=== PATIENT | female | born 1980 | race Caucasian/White ===

== ENCOUNTER 2019-02-07 10:46 | Emergency (ER) | payer OTHER ==
[~2019-02-07] VITALS: Ht 157.5 cm; Wt 102.1 kg
--- OUTSIDE RECORDS SUMMARY | 2019-02-07 10:48 | XMS REPORT ---
Author Author [facility] Address Unknown Phone Unavailable Care Team Providers Care Framing Carpenter Name Role Phone Unavailable Unavailable Payers Payer Name Policy Type Policy Number Effective Date Expiration Date Problems This patient has no known problems. Allergies, Adverse Reactions, Alerts Allergy Name Allergy Type Status Severity Reaction(s) Onset Date Inactive Date Treating Clinician Comments tramadol HCl DA Active 2019-01-08 00:00:00 Penicillins DA Active ID 2019-01-08 00:00:00 Sulfa (Sulfonamide Antibiotics) DA Active ID 2019-01-08 00:00:00 doxycycline DA Active ID 2019-01-08 00:00:00 ketorolac DA Active ID 2019-01-08 00:00:00 tramadol HCl DA Active U 2012-12-26 00:00:00 Penicillins DA Active ID 2012-12-26 00:00:00 Sulfa (Sulfonamide Antibiotics) DA Active ID 2012-12-26 00:00:00 doxycycline DA Active ID 2012-12-26 00:00:00 ketorolac DA Active ID 2012-12-26 00:00:00 Medications This patient has no known medications. Results Test Description Test Time Test Comments Text Results Atomic Results Result Comments - XR RIBS UNI W/CXR 3+V LT 2019-01-08 10:56:00 FAX: Viridiana Cuevas DO [place]: [address] St: REG Name: DAMEON CROFT [facility] : 1980 Age/S: 38/F [address] [facility] Unit #: [id number] Loc: [place] [address] Phys: Viridiana Cuevas DO Acct: [id number] Dis Date: Status: REG ER PHONE #: [phone] Exam Date: 01/08/2019 1030 FAX #: [phone] Reason: CHEST PAIN, FALL EXAMS: CPT CODE: [id number] XR RIBS UNI W/CXR 3+[place] [address] HISTORY: Chest wall pain. COMPARISON: Chest x-ray from February 17, 2014. Chest x-ray and left rib series: The lungs are clear of infiltrates, effusion or congestion. Cardiac and the mediastinal silhouette are normal. No pneumothorax. No left rib fracture. IMPRESSION: No left rib fracture or pneumothorax. The lungs are clear. at 1058 Reported and signed by: Elmo Triana M.D. CC: Viridiana Cuevas DO Technologist: RT GLORIA(Cesar) Trnscrd Date/Time/By: 01/08/2019 (1056) : By: [email or web address] Orig Print D/T: S: 01/08/2019 (6498) PAGE 1 Signed Report CBC 2018-07-03 15:20:00 WBC (test code=WBC) 7.1 K/UL 3.5-10.9 RBC (test code=RBC) 4.75 M/UL 4.0-5.0 HGB (test code=HGB) 13.4 G/DL 11.5-15.5 HCT (test code=HCT) 42.0 % 34-46 MCV (test code=MCV) 88.4 FL 80-98 MCH (test code=MCH) 28.2 PG 28-32 MCHC (test code=MCHC) 31.9 G/DL 32.5-36.5 RDW (test code=RDW) 13.2 % 11.5-14.5 PLT (test code=PLT) 252 K/UL 150-450 MPV (test code=MPV) 10.6 FL 7.4-10.4 MANDIFF (test code=MANDIFF) NO SCAN (test code=SCAN) NO NEUT% (test code=NEUT%) 34.2 % 40-75 LYMPH% (test code=LYMPH%) 58.0 % 24-44 MONO% (test code=MONO%) 7.0 % 0-13 EOS% (test code=EOS%) 0.4 % 0-4 BASO % (test code=BASO%) 0.3 % 0-2 IG (test code=IG) 0 % 0-1 IG% (test code=IG%) 0.1 % 0-1 IG%=Metamyelocytes, Myelocytes, and Promyelocytes. (Immature neutrophils not including "bands".) > 3% IG indicates risk of sepsis NRBC% (test code=NRBC%) 0 /100 WBC ABS NEUT (test code=NEUT) 2.4 K/UL 1.2-7.2 [id number] 15:06:00* Test Item Value Reference Range Comments SODIUM (test code=NA) 138 MMOL/L 137-145 K+ (test code=KSERUM) 3.9 MMOL/L 3.5-5.1 PLEASE NOTE NEW REFERENCE RANGE(S) IN EFFECT EFFECTIVE 11/02/2009 - NEW ANALYZER (TargetX 5600) CHLORIDE (test code=CL) 104 MMOL/L 98-107 CO2 (test code=CO2) 27 MMOL/L 22-30 BUN (test code=BUN) 5 MG/DL 7-17 CREA (test code=CREA) 0.5 MG/DL 0.7-1.2 GLUCOSE (test code=GLUCOSE) 87 MG/DL 70-99 Fasting glucose normal <100 MG/DL- [place] recommendation CALCIUM (test code=CABLOOD) 9.8 MG/DL 8.4-10.2 TOTPROT (test code=TOTPROT) 6.7 G/DL 6.3-8.2 ALBUMIN (test code=ALBSERUM) 4.3 G/DL 3.5-5.0 BILITOT (test code=BILITOT) 0.5 MG/DL 0.2-1.3 AST (test code=AST) 10 U/L 15-46 PHOSALK (test code=PHOSALK) 121 U/L 38-126 ALT (test code=ALT) 19 U/L 13-69 GFR (test code=GFR) 145 mL/min/1.73m2 A GFR of >90 mL/min/1.73m2 is considered normal. LIPID [id number] 15:06:00* Test Item Value Reference Range Comments CHOLEST (test code=CHOLEST) 282 MG/DL 0-200 TRIGLYCE (test code=TRIGLYCE) 95 MG/DL 0-150 HDL (test code=HDL) 76 MG/DL 35-90 NEGATIVE RISK FACTOR FOR HEART DISEASE IF HDL >/=60 mg/dl MAJOR RISK FACTOR FOR HEART DISEASE IF HDL <40 mg/dL CALC LDL (test code=CALC LDL) 187 MG/DL <100 [id number] 18:29:[address] [id number] IMAGING REPORTPatient Name: DAMEON CROFT HDate of Service: [id number]: 37 Sex: F Order #: [id number] Room: [facility]: 1980 X-Ray Number: [id number] Record Number: [id number] Hospital Number: [id number] Physician: Nazanin BANSALing Physician: Rigo HILARIO RIBS 3 views 09/21/2017 5:18 PMHistory: Chest Pain with Trauma/Injury, fell with left-sided rib pain anddyspnea.Comparisons: None availableFindings:There is no rib fracture or destruction.There is no lytic or blastic bone lesion.Impression:Unremarkable rib series.Electronically Signed By: Joseph Thomson M.D., 09/21/2017 6:26 PMLegally authenticated by LEIGH [employer]AMPO 2017-09-21 18:26:40
--- OUTSIDE RECORDS SUMMARY | 2019-02-07 10:49 | XMS REPORT | Summary of Care ---
Author Author [facility] - Health Organization [facility] - Health Address Unknown Phone Unavailable Care Team Providers Care Lamp Shades Supervisor Name Role Phone Terrance Ward Unavailable Nalini Brady SINGLE POINTED OPERATOR Unavailable Unavailable Lamonte Carmona [address] Blake Barajas MD PCP Encounter Details Care Team Description Date Type Department Doctor Unassigned, [place] [address] [place] [address] 12/15/2018 Orders Only [facility] [address] [place] [address] Allergies Comments Active Allergy Reactions Severity Noted Date Doxycycline Nausea and/or High 05/27/2012 Vomiting Ketorolac Hives High 11/26/2017 Penicillins Hives High 05/27/2012 Sulfa (Sulfonamide Hives High 05/27/2012 Antibiotics) Ketorolac Tromethamine Hives High 05/27/2012 Tramadol Hives 05/01/2017 documented as of this encounter (statuses as of 12/16/2018) Medications End Date Status Medication Sig Dispensed Refills Start Date Active ALPRAZolam (XANAX XR) 1 1 mg at 0 07/25/201 mg 24 hr tablet bedtime. 6 Active QUEtiapine (SEROQUEL) 300 600 mg at 0 07/02/201 mg tablet bedtime. 6 Active hydrOXYzine (VISTARIL) 50 0 07/02/ mg capsule 6 Active divalproex ER (DEPAKOTE 1,500 mg at 0 ER) 500 mg 24 hr tablet bedtime. 6 Active metFORMIN (FORTAMET) 500 Take 2 180 tablet 5 10/25/201 mg 24 hr tablet tablets by 6 mouth 2 (two) times daily with meals. Active atorvastatin (LIPITOR) 40 Take 1 tablet 90 tablet 5 10/25/201 mg tablet by mouth at 6 bedtime. Active magnesium oxide (MAG-OX Take 1 tablet 30 tablet 1 400) 400 mg tablet by mouth 6 daily. Active insulin glargine (LANTUS inject 22 10 mL 5 U-100) 100 unit/mL Units under 6 injection the skin 2 (two) times daily. Active Blood-Glucose Meter Use as 1 Kit 0 (TRUETRACK BLOOD GLUCOSE directed to 6 SYSTEM) Kit test blood glucose three times a day before meals. E11.9 Active blood sugar diagnostic Use as 100 Strip 3 (TRUETRACK TEST) strip directed to 6 test blood glucose three times a day before meals. E11.9 Active lancets (BD ULTRA FINE Use as 100 Each 3 LANCETS) 33 gauge Misc directed to 6 test blood glucose three times a day. E11.9 Active oseltamivir 75 mg capsule Take 1 10 capsule 0 capsule by 7 mouth 2 (two) times daily. Active busPIRone 10 mg tablet Take 10 mg by 0 mouth 2 (two) times daily. Active acetaminophen (TYLENOL Take 1 tablet 60 tablet 3 ARTHRITIS PAIN) 650 mg CR by mouth 8 tabletIndications: Left every 8 leg pain, Acute pain of (eight) hours left knee, Left ankle as needed for pain, unspecified Pain. chronicity Active ibuprofen 400 mg tablet Take 2 180 tablet 1 tablets by 8 mouth 3 (three) times daily with meals. Active acetaminophen-codeine 0 300-30 mg tablet 8 Active ALPRAZolam 0.5 mg 24 hr 0 tablet 8 Active meloxicam 7.5 mg tablet 0 8 Active furosemide (LASIX) 20 mg Take 2 60 tablet 6 tablet tablets by 8 mouth daily. Active KCL 10 mEq tablet Take 1 tablet 30 tablet 6 by mouth 8 daily. Active acetaminophen (TYLENOL) Take 1 tablet 30 tablet 0 325 mg tabletIndications: by mouth 8 Fall, subsequent every 6 (six) encounter hours as needed for Pain (scale 4-6). Active cyclobenzaprine 10 mg Take 1 tablet 90 tablet 3 tablet by mouth 3 8 (three) times daily. Active acetaminophen-codeine Take 1 tablet 60 tablet 0 300-60 mg by mouth 8 tabletIndications: Fall, every 4 initial encounter (four) hours as needed for Pain. Active brompheniramine-pseudoeph Take 5 mL by 473 mL 0 edrine-DM (BROMFED DM) mouth 4 8 2-30-10 mg/5 mL (four) times syrupIndications: Acute daily as bronchitis, unspecified needed for organism, Chronic Congestion/Al obstructive pulmonary lergies or disease, unspecified COPD Cough. type, Cough Active fluticasone (FLONASE) 50 Use 2 Sprays 16 g 11 mcg/actuation nasal in each 9 sprayIndications: Mild nostril intermittent asthma daily. without complication Active amitriptyline 50 mg Take 50 mg by 0 tablet mouth at 9 bedtime. Active acetaminophen-codeine Take 1 tablet 15 tablet 0 300-30 mg by mouth 9 tabletIndications: Pain every 4 of left lower extremity (four) hours as needed for Pain (scale 7-10). Active pantoprazole 40 mg EC Take 1 tablet 90 tablet 3 tabletIndications: by mouth 9 Gastroesophageal reflux daily. disease without esophagitis Active valACYclovir 500 mg Take 1 tablet 60 tablet 5 tabletIndications: Herpes by mouth 2 9 (two) times daily. Active buPROPion XL 150 mg 24 hr Take 1 tablet 30 tablet 0 tablet by mouth 9 every morning. Active escitalopram oxalate 20 Take 1 tablet 30 tablet 0 mg tablet by mouth 9 daily. Active fluticasone propionate Inhale 2 1 Inhaler (FLOVENT HFA) 220 Puffs every 9 mcg/actuation 12 (twelve) inhalerIndications: Mild hours. intermittent asthma without complication Active albuterol sulfate (PROAIR Inhale 2 Each 1 Each RESPICLICK) 90 every 4 9 mcg/actuation (four) hours AePBIndications: Mild as needed intermittent asthma (sob). without complication Active levalbuterol (XOPENEX) Inhale 0.63 180 Vial 0.63 mg/3 mL nebulizer mg 3 (three) 9 solutionIndications: Mild times daily intermittent asthma as needed for without complication Wheezing or Shortness of Breath. Active Nebulizer & Compressor Use as 1 Device 0 For Neb DeviIndications: directed 9 Mild intermittent asthma without complication Active montelukast (SINGULAIR) Take 1 tablet 90 tablet 3 10 mg tabletIndications: by mouth 9 Mild intermittent asthma daily. without complication Active loratadine 10 mg Take 1 90 capsule 3 capsuleIndications: Mild capsule by 9 intermittent asthma mouth daily. without complication documented as of this encounter (statuses as of 12/16/2018) Active Problems Problem Noted Date Hypoxia 10/25/2015 Morbid obesity with BMI of 40.0-44.9, adult Tobacco dependence Diabetes mellitus Asthma BRIGIDA (obstructive sleep apnea) documented as of this encounter (statuses as of 12/16/2018) Social History Date Tobacco Use Types Packs/Day Years Used Started: 03/31/1992 Current Every Day Smoker Cigarettes 1 24 Smokeless Tobacco: Never Used Comments: Started Chantix - trying to quit. Currently smoking - 20 packs per month Drinks/Week oz/Week Comments Alcohol Use 0 Standard drinks or equivalent 0.0 No Sex Assigned at Date Recorded Not on file Industry Job Start Date Occupation Not on file Not on file Not on file Travel End Travel History Travel Start No recent travel history available. documented as of this encounter Last Filed Vital Signs Not on filedocumented in this encounter Plan of Treatment Care Team Description Date Type Specialty Angella Awad, BAR [address] [place] [address] [address] [place], [place] [address] [phone] 02/19/2019 Office Visit Pulmonary Disease Health Maintenance Due Date Last Done Comments PNEUMOCOCCAL 0-64 YEARS 02/12/1984 COMBINED SERIES (1 of 1 - PPSV23) EYE EXAM 02/12/1988 URINE MICROALBUMIN 02/12/1988 FOOT EXAM 02/12/1996 DTaP,Tdap,and Td Vaccines 1997 (1 - Tdap) PAP SMEAR 1999 MAMMOGRAM 2018 HgA1C 11/05/2018 05/08/2018, 03/05/2018, 10/25/2015 INFLUENZA VACCINE (#1) 2018 CREATININE (SERUM) 05/08/2019 05/08/2018, 03/17/2017, 10/27/2015, Additional history exists LDL-C 05/08/2019 05/08/2018 documented as of this encounter Goals Goal Patient Associated Recent Progress Patient-Stat Author Goal Type Problems ed? Quit using tobacco Tobacco No [place], (cigarettes, smokeless, etc) Use Jamie Eller MA documented as of this encounter Procedures Comments Procedure Name Priority Date/Time Associated Diagnosis DME/SUPPLY JUSTIFICATION Routine 12/15/2018 12:01 AM CDT documented in this encounter Results Not on filedocumented in this encounter Insurance Type Payer Benefit Subscriber ID Effective Phone Address Plan / Dates Group Medicaid [employer] COMM [place]HC [place] xxxxxxxxx 2017- PLAN - MANAGED MEDICAID STAR PLUS Present TERESA PAYOR TERESA Effective [facility] PLAN for all [place] dates documented as of this encounter
--- OUTSIDE RECORDS SUMMARY | 2019-02-07 10:49 | XMS REPORT | Summary of Care ---
Author Author [facility] - Health Organization [facility] - Health Address Unknown Phone Unavailable Care Team Providers Care Sorter Lumber Straightener Name Role Phone Terrance Ward Unavailable Nalini Brady CAGE MAKER MACHINE Unavailable Unavailable Lamonte Carmona [address] Blake Barajas MD PCP Reason for Visit * Reason Comments Refill Request Encounter Details Care Team Description Date Type Department Nalini Brady, CAGE MAKER MACHINE Refill Request 11/13/2018 Refill [facility] [address] [place] [phone] Allergies Comments Active Allergy Reactions Severity Noted Date Doxycycline Nausea and/or High 05/27/2012 Vomiting Ketorolac Hives High 11/26/2017 Penicillins Hives High 05/27/2012 Sulfa (Sulfonamide Hives High 05/27/2012 Antibiotics) Ketorolac Tromethamine Hives High 05/27/2012 Tramadol Hives 05/01/2017 documented as of this encounter (statuses as of 11/16/2018) Medications End Date Status Medication Sig Dispensed Refills Start Date Active ALPRAZolam (XANAX XR) 1 1 mg at 0 07/25/201 mg 24 hr tablet bedtime. 6 Active QUEtiapine (SEROQUEL) 300 600 mg at 0 201 mg tablet bedtime. 6 Active hydrOXYzine (VISTARIL) 50 0 07/02/ mg capsule 6 Active divalproex ER (DEPAKOTE 1,500 mg at 0 ER) 500 mg 24 hr tablet bedtime. 6 Active metFORMIN (FORTAMET) 500 Take 2 180 tablet 5 10/25/201 mg 24 hr tablet tablets by 6 mouth 2 (two) times daily with meals. Active atorvastatin (LIPITOR) 40 Take 1 tablet 90 tablet 5 mg tablet by mouth at 6 bedtime. [...] mg Take 1 tablet 90 tablet 3 08/14/201 tablet by mouth 3 8 (three) times [...] disease, unspecified COPD Cough. type, Cough Active montelukast (SINGULAIR) Take 1 tablet 90 tablet 11 10 mg tabletIndications: by mouth 9 Mild intermittent asthma daily. without complication Active fluticasone (FLONASE) 50 Use 2 Sprays 16 g 11 mcg/actuation nasal in each 9 sprayIndications: Mild nostril intermittent asthma daily. without complication Active loratadine 10 mg Take 1 30 capsule 11 capsuleIndications: Mild capsule by 9 intermittent asthma mouth daily. without complication Active amitriptyline 50 mg [...] Active fluticasone propionate Inhale 2 1 Inhaler 11 (FLOVENT HFA) 220 Puffs every 9 mcg/actuation 12 (twelve) inhalerIndications: Mild hours. intermittent asthma without complication Active albuterol sulfate (PROAIR Inhale 2 Each 1 Each 11 RESPICLICK) 90 every 4 9 mcg/actuation (four) hours AePBIndications: Mild as needed intermittent asthma (sob). without complication Active levalbuterol (XOPENEX) Inhale 0.63 180 Vial 11 0.63 mg/3 mL nebulizer mg 3 (three) 9 solutionIndications: Mild times daily intermittent asthma as needed for without complication Wheezing or Shortness of Breath. Active Nebulizer & Compressor Use as 1 Device 0 For Neb DeviIndications: directed 9 Mild intermittent asthma without complication documented as of this encounter (statuses as of 11/16/2018) Active Problems Problem Noted Date Hypoxia 10/25/2015 Morbid obesity with BMI of 40.0-44.9, adult Tobacco dependence Diabetes mellitus Asthma BRIGIDA (obstructive sleep apnea) documented as of this encounter (statuses as of 11/16/2018) Social History Date Tobacco Use Types Packs/Day [...] Description Date Type Specialty Angella Awad, BAR [address] [place] [address] [place] [address] [phone] 02/19/2019 Office Visit Pulmonary Disease Health Maintenance [...] Eller MA documented as of this encounter Results Not on filedocumented in this encounter Insurance Type Payer Benefit Subscriber ID Effective Phone Address Plan / Dates Group Medicaid [employer] COMM [place]HC [place] xxxxxxxxx 2017- PLAN - MANAGED MEDICAID STAR PLUS Present [place] [facility] [place] dates documented as of this encounter
--- OUTSIDE RECORDS SUMMARY | 2019-02-07 10:49 | XMS REPORT | Summary of Care ---
Author Author [facility] - Health Organization [facility] - Health Address Unknown Phone Unavailable Care Team Providers Care Paper Guillotine Operator Name Role Phone Terrance Ward Unavailable Nalini Brady RICE MILLING SUPERVISOR Unavailable Unavailable Lamonte Carmona [address] Blake Barajas MD PCP Reason for Visit * Reason Comments Orders Encounter Details Care Team Description Date Type Department Angella Awad, RICE MILLING SUPERVISOR [address] [place] [address] [place] [address] Orders 10/20/2018 Telephone [facility] [address] [place] [phone] Allergies Comments Active Allergy Reactions Severity Noted Date Doxycycline Nausea and/or High 05/27/2012 Vomiting Ketorolac Hives High 11/26/2017 Penicillins Hives High 05/27/2012 Sulfa (Sulfonamide Hives High 05/27/2012 Antibiotics) Ketorolac Tromethamine Hives High 05/27/2012 Tramadol Hives 05/01/2017 documented as of this encounter (statuses as of 10/27/2018) Medications End Date Status Medication Sig Dispensed Refills Start Date Active ALPRAZolam (XANAX XR) 1 1 mg at 0 07/25/ mg 24 hr tablet bedtime. 6 Active QUEtiapine (SEROQUEL) 300 600 mg at 0 07/02/201 mg tablet bedtime. 6 Active hydrOXYzine (VISTARIL) 50 0 07/02/201 mg capsule 6 Active divalproex ER (DEPAKOTE 1,500 mg at 0 ER) 500 mg 24 hr tablet bedtime. 6 Active metFORMIN (FORTAMET) 500 Take 2 180 tablet 5 mg 24 hr tablet tablets by 6 [...] intermittent asthma daily. without complication Active fluticasone (FLOVENT HFA) Inhale 2 1 Inhaler 11 220 mcg/actuation Puffs every 9 inhalerIndications: Mild 12 (twelve) intermittent asthma hours. without complication Active fluticasone (FLONASE) 50 Use 2 Sprays 16 g mcg/actuation nasal in each 9 sprayIndications: Mild nostril intermittent asthma daily. without complication Active loratadine 10 mg Take 1 30 capsule 11 capsuleIndications: Mild capsule by 9 intermittent asthma mouth daily. without complication Active albuterol 90 Inhale 2 8.5 g 11 mcg/actuation Puffs every 4 9 inhalerIndications: Mild (four) hours intermittent asthma as needed for without complication Wheezing or Shortness of Breath. Active amitriptyline 50 mg Take 50 mg [...] 0 mg tablet by mouth 9 daily. documented as of this encounter (statuses as of 10/27/2018) Active Problems Problem Noted Date Hypoxia 10/25/2015 Morbid obesity with BMI of 40.0-44.9, adult Tobacco dependence Diabetes mellitus Asthma BRIGIDA (obstructive sleep apnea) documented as of this encounter (statuses as of 10/27/2018) Social History Date Tobacco Use Types Packs/Day [...] Description Date Type Specialty Angella Awad, BAR [address] [place] [address] [place] [address] [phone] 12/14/2018 Office Visit Pulmonary Disease Health Maintenance Due Date Last Done Comments PNEUMOCOCCAL 0-64 YEARS 02/12/1984 COMBINED SERIES (1 of 1 - PPSV23) EYE EXAM 02/12/1988 URINE MICROALBUMIN 02/12/1988 FOOT EXAM 02/12/1996 DTaP,Tdap,and Td Vaccines 1997 (1 - Tdap) PAP SMEAR 1999 MAMMOGRAM 2018 HgA1C 11/05/2018 05/08/2018, 03/05/2018, 10/25/2015 INFLUENZA VACCINE 11/29/2018 CREATININE (SERUM) 05/08/2019 05/08/2018, 03/17/2017, 10/27/2015, Additional [...] STAR PLUS Present TERESA PAYOR TERESA Effective [employer] for all [place] dates documented as of this encounter
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
--- OUTSIDE RECORDS SUMMARY | 2019-02-07 10:49 | XMS REPORT | Summary of Care ---
Author Author [facility] - Health Organization [facility] - Health Address Unknown Phone Unavailable Care Team Providers Care Clinical Reviewer Name Role Phone Terrance Ward Unavailable Nalini Brady FOOD AND BEVERAGE ASSISTANT Unavailable Unavailable Lamonte Carmona [address]6 Blake Barajas MD PCP Reason for Visit * Reason Comments DME Encounter Details Care Team Description Date Type Department Angella Awad, FOOD AND BEVERAGE ASSISTANT [address] [place] [address] [place] [address] DME 12/14/2018 Telephone [facility] [address] [place] [address] Allergies Comments Active Allergy Reactions Severity Noted Date Doxycycline Nausea and/or High 05/27/2012 Vomiting Ketorolac Hives High 11/26/2017 Penicillins Hives High 05/27/2012 Sulfa (Sulfonamide Hives High 05/27/2012 Antibiotics) Ketorolac Tromethamine Hives High 05/27/2012 Tramadol Hives 05/01/2017 documented as of this encounter (statuses as of 12/15/2018) Medications End Date Status Medication Sig Dispensed Refills Start Date Active ALPRAZolam (XANAX XR) 1 1 mg at 0 mg 24 hr tablet bedtime. 6 Active [...] 9 intermittent asthma mouth daily. without complication 12/15/2018 Discontinued montelukast (SINGULAIR) Take 1 tablet 90 tablet 11 10 mg tabletIndications: by mouth 9 Mild intermittent asthma daily. without complication 12/15/2018 Discontinued loratadine 10 mg Take 1 30 capsule 11 capsuleIndications: Mild capsule by 9 intermittent asthma mouth daily. without complication documented as of this encounter (statuses as of 12/15/2018) Active Problems Problem Noted Date Hypoxia 10/25/2015 Morbid obesity with BMI of 40.0-44.9, adult Tobacco dependence Diabetes mellitus Asthma BRIGIDA (obstructive sleep apnea) documented as of this encounter (statuses as of 12/15/2018) Social History Date Tobacco Use Types Packs/Day [...] Description Date Type Specialty Angella Awad, BAR [address] [place] [address] Dr [place], [place] [address] [phone] 02/19/2019 Office Visit Pulmonary Disease Health Maintenance [...] Diagnoses Diagnosis Mild intermittent asthma without complication Unspecified asthma documented in this encounter Insurance Type Payer Benefit Subscriber ID Effective Phone Address Plan / Dates Group Medicaid [employer] COMM [place]HC [place] xxxxxxxxx 2017- PLAN - MANAGED MEDICAID STAR PLUS Present TERESA PAYOR TERESA Effective [facility] [place] dates documented as of this encounter
--- OUTSIDE RECORDS SUMMARY | 2019-02-07 10:49 | XMS REPORT | Summary of Care ---
Author Author [facility] - Health Organization [facility] - Health Address Unknown Phone Unavailable Care Team Providers Care Learning And Development Coordinator Name Role Phone Terrance Ward Unavailable Nalini Brady SCALEHOUSE ATTENDANT Unavailable Unavailable Lamonte Carmona 1006 Blake Barajas MD PCP Reason for Visit * Reason Comments DME [facility] Prescription CPAP Auto w/supplies Rx signed 12/15/2018 Forms Nebulizer/Medication order form Encounter Details Care Team Description Date Type Department Angella Awad, BAR [address] [place] [address] [place] [address] DME ([facility]); Prescription (CPAP Auto w/supplies Rx signed 12/15/2018); Forms (Nebulizer/Medication order form ) 12/14/2018 Telephone [facility] [address] [place] [address] Allergies Comments Active Allergy Reactions [...] bedtime. 6 Active hydrOXYzine (VISTARIL) 50 0 04/04/201 mg capsule 6 Active divalproex ER (DEPAKOTE [...] Care Team Description Date Type Specialty Angella Awda FNP [address] [place] [address] [place] [address] [phone] 02/19/2019 Office Visit Pulmonary Disease Health Maintenance [...]
--- OUTSIDE RECORDS SUMMARY | 2019-02-07 10:49 | XMS REPORT | Summary of Care ---
Author Author [facility] - Health Organization [facility] - Health Address Unknown Phone Unavailable Care Team Providers Care Classroom Teacher Name Role Phone Terrance Ward Unavailable Nalini Brady PROJECT CONTROL ANALYST Unavailable Unavailable Lamonte Carmona [address]6 Blake Barajas MD PCP Reason for Visit * Reason Comments DME Encounter Details Care Team Description Date Type Department Angella Awad, PROJECT CONTROL ANALYST [address] [place] [address] [place] [address] DME 12/14/2018 Telephone [facility] [address] [place] [address] Allergies Comments Active Allergy Reactions [...] Description Date Type Specialty Angella Awad, BAR [address] [place] [address] [place] [address] [phone] 02/19/2019 Office Visit Pulmonary Disease Health Maintenance [...] STAR PLUS Present TERESA PAYOR TERESA Effective [place], PLAN for all [place] dates documented as of this encounter
--- OUTSIDE RECORDS SUMMARY | 2019-02-07 10:50 | XMS REPORT | Summary of Care ---
Author Author [facility] - Health Organization [facility] - Health Address Unknown Phone Unavailable Care Team Providers Care Maintenance Service Technician Name Role Phone Terrance Ward Unavailable Nalini Brady BLENDER CONVEYOR OPERATOR Unavailable Unavailable Lamonte Carmona 1006 Blake Barajas MD PCP Reason for Visit * Reason Comments DME Encounter Details Care Team Description Date Type Department Angella Awad, BLENDER CONVEYOR OPERATOR [address] [place] [address] [place] [address] DME 12/17/2018 Telephone [facility] [address] [place] [address] Allergies Comments Active Allergy Reactions Severity Noted Date Doxycycline Nausea and/or High 05/27/2012 Vomiting Ketorolac Hives High 11/26/2017 Penicillins Hives High 05/27/2012 Sulfa (Sulfonamide Hives High 05/27/2012 Antibiotics) Ketorolac Tromethamine Hives High 05/27/2012 Tramadol Hives 05/01/2017 documented as of this encounter (statuses as of 12/17/2018) Medications End Date Status Medication Sig Dispensed [...] as of this encounter (statuses as of 12/17/2018) Active Problems Problem Noted Date Hypoxia 10/25/2015 Morbid obesity with BMI of 40.0-44.9, adult Tobacco dependence Diabetes mellitus Asthma BRIGIDA (obstructive sleep apnea) documented as of this encounter (statuses as of 12/17/2018) Social History Date Tobacco Use Types Packs/Day [...] Description Date Type Specialty Angella Awad, BAR [address] [place] [address] [place] [address] [phone] 02/19/2019 Office Visit Pulmonary Disease Health Maintenance [...] STAR PLUS Present TERESA PAYOR TERESA Effective [place], PLAN for all [place] dates documented as of this encounter
[2019-02-07] MEDS ORDERED: LORATADINE10 MG PO (11:04)
[2019-02-07] MEDS ORDERED: AMITRIPTYLINE H25 MG PO (11:05)
[2019-02-07] MEDS ORDERED: TRILEPTAL300 MG PO (11:09)
[2019-02-07] MEDS ORDERED: LATUDA40 MG PO (11:09)
[2019-02-07] MEDS ORDERED: SEROQUEL25 MG PO (11:09)
[2019-02-07] MEDS ORDERED: XANAX0.5 MG PO (11:09)
[2019-02-07] MEDS ORDERED: SINGULAIR10 MG PO (11:09)
[2019-02-07] MEDS ORDERED: AMBIEN10 MG PO (11:09)
[2019-02-07] MEDS ORDERED: DEPAKOTE500 MG PO (11:09)
[2019-02-07] MEDS ORDERED: LEXAPRO10 MG PO (11:09)
[2019-02-07] MEDS ORDERED: WELLBUTRIN SR150 MG PO (11:12)
[2019-02-07 11:23] LABS: BASOPHILS % 0.3 % (0.0-1.0); EOSINOPHILS % 0.3 % (0.0-6.0); HEMATOCRIT 37.5 % (34.2-44.1); HEMOGLOBIN 12.5 g/dL (12.0-16.0); LYMPHOCYTES # (AUTO) 3.6 (1.0-3.2); MEAN CORPUSCULAR HEMOGLOBIN 29.8 pg (28-32); MEAN CORPUSCULAR HGB CONC 33.3 g/dL (31-35); MEAN CORPUSCULAR VOLUME 89.5 fL (81-99); MONOCYTES % 11.3 % (4.4-11.3); NEUTROPHILS # (AUTO) 4.1 (2.1-6.9); NEUTROPHILS % 46.5 % (38.7-80.0); PLATELET COUNT 232 x10e3/uL (140-360); RED BLOOD COUNT 4.19 x10e6/uL (3.6-5.1); RED CELL DISTRIBUTION WIDTH 12.6 % (11.7-14.4)
--- NOTE | 2019-02-07 11:38 | NUR ---
PATIENT BELIGERENT, KICKING AT STAFF, ATTEMPTING TO GET STRAIGHT CATH'D URINE
[2019-02-07 11:47] LABS: ALANINE AMINOTRANSFERASE 14 IU/L (0-55); ALBUMIN 3.6 g/dL (3.5-5.0); ALBUMIN/GLOBULIN RATIO 1.3 (0.8-2.0); ALKALINE PHOSPHATASE 93 IU/L (40-150); ANION GAP 16.5 mmol/L (8-16); BLOOD UREA NITROGEN 9 mg/dL (7-26); BUN/CREATININE RATIO 13 (6-25); CALCIUM 9.4 mg/dL (8.4-10.2); CARBON DIOXIDE 26 mmol/L (22-29); CHLORIDE 100 mmol/L (98-107); CREATININE, SERUM 0.72 mg/dL (0.57-1.11); EST GLOMERULAR FILTRATION RATE > 60 ML/MIN (60-); GLUCOSE 133 mg/dL (74-118); POTASSIUM 4.5 mmol/L (3.5-5.1); SODIUM 138 mmol/L (136-145)
[2019-02-07 11:50] LABS: ACETAMINOPHEN < 3 ug/mL (10-30); SALICYLATE < 5.0 mg/dL (0-30)
[2019-02-07 11:54] LABS: BILIRUBIN,URINE NEGATIVE (NEGATIVE); CLARITY,URINE CLOUDY (CLEAR); COLOR,URINE YELLOW (YELLOW); KETONES,URINE NEGATIVE (NEGATIVE); LEUKOCYTE ESTERASE ,URINE MODERATE (NEGATIVE); NITRITE,URINE NEGATIVE (NEGATIVE); PROTEIN,URINE DIPSTICK 2+ (NEGATIVE); URINE UROBILINOGEN 0.2 mg/dL (0.2 - 1)
[2019-02-07 12:08] LABS: AMPHETAMINES SCREEN,URINE NEGATIVE (NEGATIVE); PHENCYCLIDINE SCREEN,URINE NEGATIVE (NEGATIVE)
[2019-02-07 12:09] LABS: BENZODIAZEPINES SCREEN,URINE POSITIVE (NEGATIVE)
[2019-02-07 12:18] LABS: BACTERIA,URINE RARE /HPF
[2019-02-07 12:19] LABS: EPITHELIAL CELLS,URINE FEW /LPF
[2019-02-07 12:32] LABS: PREGNANCY TEST, URINE NEGATIVE (NEGATIVE)
--- NOTE | 2019-02-07 12:51 | NUR ---
PATIENT SLEEPING, EASILY AWAKENED. REFUSES ANY WATER AT THIS TIME. PLACED IT AT BEDSIDE. WILL ORDER A MEAL TRAY WHEN SHE IS AWAKE
--- NOTE | 2019-02-07 13:46 | NUR ---
PATIENT DRINKING WATER WITHOUT DIFFICULTY, BUT THEN FELL BACK TO SLEEP. ANSWERING QUESTIONS APPROPRIATELY. NO LONGER YELLING OR LASHING OUT AT STAFF SANDWICH, PUDDINGS AND CLAUDIO AT BEDSIDE
--- NOTE | 2019-02-07 14:09 | NUR ---
Note daisy in EDM - 02/07/19 at [address] AVALOS AND JOE Pascal AT BEDSIDE FOR CLOSED REDUCTION OF LEFT ANKLE. AIRWAY INTACT. PATIENT WEARING 3L/NC. PATIENT ON ELECTRICAL MAINTENANCE WORKER. RIGHT AC 20 GUAGE PATENT.
--- NOTE | 2019-02-07 14:12 | NUR ---
Hal villa in ED - 02/07/19 at 1426 by TALIA CLOSED REDUCTION COMPLETE. PATIENT AWAKE, ALERT, ORIENTED X 3.
--- NOTE | 2019-02-07 14:57 | NUR ---
PATIENT SITTING UP IN BED EATING
== END 2019-02-07 15:49 | disposition home or self-care (01) ==
LOC: ER 10:46
DX: T42.4X4A Poisoning by benzodiazepines, undetermined, initial encounter (principal); F31.9 Bipolar disorder, unspecified
CPT/HCPCS: 36415; 80053; 80307; 80320; 80329; 81001; 81025; 85025; 93005; 99284